=== PATIENT | male | born 1985 | race Caucasian/White ===

== ENCOUNTER 2021-12-11 08:46 | Emergency (ER) | payer OTHER ==
[~2021-12-11] VITALS: Ht 195.6 cm; Wt 130.6 kg
[~2021-12-11 08:46] MED LIST: SEPTRA DS TABL1 EACH PO
== END 2021-12-11 12:04 | disposition home or self-care (01) ==
LOC: ED 08:46
DX: Z11.3 Encounter for screening for infections with a predominantly sexual mode of transmission (principal); Z88.0 Allergy status to penicillin
CPT/HCPCS: 36415; 87491; 99283